=== PATIENT | male | born 1940 | race Caucasian/White ===

== ENCOUNTER → 2018-03-01 | Outpatient (CLI) | payer OTHER, MEDICARE ==
[~2018-03-01] MED LIST: ASPIR 8181 MG PO; BRILINTA90 MG PO; CALCIUM 600 +1 EAC1 PO; COQ-10100 MG PO; HYDROCHLOROTH12.5 M1 PO; LIALDA1.2 GM PO; LISINOPRIL20 MG PO; NITROGLYCERIN0.4 MG SUBLING; TOPROL XL25 MG PO; UNICOMPLEX M TA1 TA1 PO; VITAMIN D2000 UNIT PO; VITAMINC500 PO; ZOCOR20 MG PO
--- NOTE | 2018-03-01 17:30 | CARDNUC ---
[place] [address] CARDIAC NUCLEAR IMAGING REPORT Name: IDRIS GONSALES Room: [facility]#: [id number] Admission: 03/01/18 Attend Phys: Marie Duran Discharge: Date of : 38 Date of Service: 03/01/18 1729 Report #: [id number] THIS REPORT FOR: //name// APPROVED REPORT Study performed: 03/01/2018 09:50:10 Indication: Dyspnea Patient Location: Out-Patient Stress Tech: Marion Parsons Stress Nurse: Mohini Yousif RN Ht: 5 ft 5 in Wt: 139 lbs BSA: 1.70 m2 BMI: 23.12 Medical History Medical History: cad, pci with stents, hyperlipidemia, hypertension, Medications: simvastatin, lisinopril, metoprolol, asa 81, brilinta, hctz Allergies: penicillin Cardiac Risk Factors: age, hyperlipidemia, hypertension Previous Cardiac Procedures: pci Exercise History: Physically active Meds Held (24 hrs): metoprolol Resting Data Rest SPECT myocardial perfusion imaging was performed in supine position 30 minutes following the intravenous injection of 10.8 mCi of Tc-99m Sestamibi. Time of rest injection: 08:10 The images were gated to evaluate regional wall motion and calculate left ventricular ejection fraction. Administration Route: IV Administration Site: Right Hand Exercise Stress At peak stress, the patient was injected intravenously with 35.3mCi of Tc-99m Sestamibi. Time of stress injection: 09:45 Administration Route: IV Administration Site: Right Hand Heart Rate at time of stress injection: 138 bpm. Gated Stress SPECT was performed 30 minutes [place] [address] CARDIAC NUCLEAR IMAGING REPORT Name: IDRIS GONSALES Room: [facility]#: [id number] Admission: 03/01/18 Attend Phys: Marie Duran Discharge: Date of : 38 Date of Service: 03/01/18 1729 Report #: [id number] The images were gated to evaluate regional wall motion and calculate left ventricular ejection fraction. Prone imaging was performed. Stress Test Details Stress Test: Exercise stress testing was performed using a Stu protocol. HR Max Heart Rate (APMHR): 142 bpm Resting HR: 62 bpm Target HR (85% APMHR): 120 bpm Max HR Achieved: 138 bpm % of APMHR: 97 Recovery HR: 82 bpm HR response to stress: Normal HR response to stress BP Resting BP: 146/70 mmHg Recovery BP: 168/67 mmHg BP response to stress: Abnormal hypertensive response to stress. ECG Resting ECG: Sinus Rhythm, normal EKG Stress ECG: Sinus Tachycardia ST Change: None Arrhythmia: None Recovery ECG: Sinus Rhythm Recovery ST Change: None Recovery Arrhythmia: None Clinical Reason for Termination: ankle pain Exercise duration: 5 min sec Exercise capacity: 7 METs Overall Exercise Capacity for Age: normal The patient tolerated standard Stu protocol exercise without significant cardiac symptoms. Stress ECG Conclusion The baseline 12-lead EKG shows normal sinus rhythm with no significant ST or T wave changes. EKGs obtained during and post exercise showed sinus rhythm and sinus tachycardia and with some T wave inversion but no ST segment changes. There were no stress-induced arrhythmias[place] [address] CARDIAC NUCLEAR IMAGING REPORT Name: IDRIS GONSALES [id number] Admission: 03/01/18 Attend Phys: Marie Duran Discharge: Date of : 38 Date of Service: 03/01/18 1729 Report #: [id number] Study: Good Artifact: Mild Diaphragmatic artifact Study Data At rest, the left ventricular ejection fraction was 65%.. Post stress, the left ventricular ejection was 65%.. TID = 0.99. Perfusion Myocardial perfusion images obtained at rest and post exercise stress in the supine position show mild photopenia of the inferior wall that resolves completely with post stress prone imaging consistent with diaphragmatic attenuation artifact. No other significant defects were identified. Wall Motion Normal left ventricular wall motion. Nuclear Conclusion ECG Findings: negative for ischemia Clinical Findings: negative for ischemia Nuclear Findings: negative for ischemia Exercise Capacity: normal Left Ventricular Function: normal Risk Study: low Myocardial perfusion images show no defect to suggest infarct or ischemia. Left ventricular systolic function appears normal on gated studies. This is a low risk study. <Conclusion> The baseline 12-lead EKG shows normal sinus rhythm with no significant ST or T wave changes. EKGs obtained during and post exercise showed sinus rhythm and sinus tachycardia and with some T wave inversion but no ST segment changes. There were no stress-induced arrhythmias. <ELECTRONICALLY SIGNED> By: Efra Pineda MD, FACC 03/01/181728 28 28 Efra Pineda MD, FACC /INF
== END ==
LOC: M.NUC 02-07 13:19
DX: I25.119 Atherosclerotic heart disease of native coronary artery with unspecified angina pectoris (principal); R06.09 Other forms of dyspnea; Z95.5 Presence of coronary angioplasty implant and graft

== ENCOUNTER → 2021-05-03 | Outpatient (CLI) | payer OTHER, MEDICARE ==
--- NOTE | 2021-05-03 17:54 | CARDNUC ---
[place] [address] CARDIAC NUCLEAR IMAGING REPORT Name: IDRIS GONSALES Room: [facility]#: [id number] Admission: 05/03/21 Attend Phys: Marie Duran Discharge: Date of : 38 Date of Service: 05/03/21 1753 Report #: [id number] THIS REPORT FOR: cc: Gail Navarro MD, Cora A. MD Liston, Michael J. MD [facility] ~ APPROVED REPORT Imaging Protocol: Stress Tc-99m/Rest Tc-99m 1 day Study performed: 05/03/2021 08:53:21 Indication: CAD s/p PCI Patient Location: Out-Patient Stress Nurse: Mohini Yousif RN Ht: 5 ft 5 in Wt: 140 lbs BSA: 1.70 m2 BMI: 23.29 Medical History Medical History: CAD s/p stent, Former Smoker, HTN, Hyperlipidemia, Stroke/TIA Medications: asa-81, hctz, lisinopril, metoprolol, simvastatin Allergies: penicillin Cardiac Risk Factors: Age, HTN, Hyperlipidemia, Past Smoker Previous Cardiac Procedures: PCI Exercise History: Indeterminate Resting Data Rest SPECT myocardial perfusion imaging was performed in supine position 30 minutes following the intravenous injection of 10.3 mCi of Tc-99m Sestamibi. Time of rest injection: 07:50 The images were gated to evaluate regional wall motion and calculate left ventricular ejection fraction. Administration Route: IV Administration Site: Right AC Pharmacologic Stress Pharmacologic stress test was performed by injecting Regadenoson 0.4 mg IV push over 10-15 seconds immediately followed by the intravenous injection of 34.7 mCi of Tc-99m Sestamibi. Time of stress injection: 08:55 Administration Route: [place] [address] CARDIAC NUCLEAR IMAGING REPORT Name: IDRIS GONSALES [facility] [id number] Admission: 05/03/21 Attend Phys: Marie Duran Discharge: Date of : 38 Date of Service: 05/03/21 1753 Report #: [id number] Administration Site: Right AC Heart Rate at time of stress injection: 86 bpm. Gated Stress SPECT was performed 45 minutes after stress injection. The images were gated to evaluate regional wall motion and calculate left ventricular ejection fraction. Prone imaging was performed. Stress Test Details Stress Test: Pharmacologic stress testing performed using 0.4 mg of regadenoson per 5 mL given IV over 10 seconds. Reason for pharmacologic stress test: physical limitation. HR Max Heart Rate (APMHR): 138 bpm Resting HR: 66 bpm Target HR (85% APMHR): 117 bpm Max HR Achieved: 86 bpm % of APMHR: 62 Recovery HR: 90 bpm BP Resting BP: 153/76 mmHg Max BP: 167/63 mmHg Recovery BP: 184/74 mmHg ECG Resting ECG: Sinus Rhythm, RBBB Stress ECG: Sinus Rhythm, RBBB ST Change: None Arrhythmia: None Recovery ECG: Sinus Rhythm, RBBB Recovery ST Change: None Recovery Arrhythmia: None Clinical Reason for Termination: Completed protocol The patient tolerated Lexiscan infusion without significant cardiac symptoms. Nurse Comments pt is unsteady on feet, cannot walk on treadmill Stress ECG Conclusion The baseline twelve-lead EKG shows sinus rhythm with right bundle branch block and nonspecific ST segment depression with T wave inversion. EKGs obtained during and post Lexiscan infusion shows sinus rhythm with no significant ST wave or T wave changes when compared to baseline. There were no stress-[place] [address] CARDIAC NUCLEAR IMAGING REPORT Name: IDRIS GONSALES Room: [facility]#: [id number] Admission: 05/03/21 Attend Phys: Marie Duran Discharge: Date of : 38 Date of Service: 05/03/21 1753 Report #: [id number] arrhythmias. Study Quality Study: Good Artifact: Mild Diaphragmatic artifact Study Data At rest, the left ventricular ejection fraction was 71%.. Post stress, the left ventricular ejection was 70%.. TID = 1.03. Perfusion Perfusion images obtained in the supine position at rest and post Lexiscan stress show mild photopenia in the inferior wall that resolves completely with post-rest prone imaging consistent with diaphragmatic attenuation artifact. There were no other significant fixed or reversible defects identified. Wall Motion Normal left ventricular wall motion. Nuclear Conclusion ECG Findings: non-diagnostic Clinical Findings: negative for ischemia Nuclear Findings: negative for ischemia Exercise Capacity: not assessed Left Ventricular Function: normal Risk Study: low Perfusion images show no defect to suggest infarct or ischemia. Left ventricular systolic function appears normal on gated studies. This is a low risk study. <Conclusion> The baseline twelve-lead EKG shows sinus rhythm with right bundle branch block and nonspecific ST segment depression with T wave inversion. EKGs obtained during and post Lexiscan infusion shows sinus rhythm with no significant ST wave or T wave changes when compared to baseline. There were no stress-induced arrhythmias. <ELECTRONICALLY SIGNED> By: Efra Pineda MD, FACC 05/03/211752 52 52 Efra Pineda MD, FACC /INF
== END ==
LOC: M.NUC 04-08 16:35
PROVIDERS: ATTEND Internal Medicine
DX: I25.119 Atherosclerotic heart disease of native coronary artery with unspecified angina pectoris (principal); Z95.5 Presence of coronary angioplasty implant and graft